=== PATIENT | male | born 2000 | race Caucasian/White ===

== ENCOUNTER 2023-06-22 14:40 | Emergency (ER) | payer OTHER ==
[2023-06-22] MEDS: Lidocaine 1% 5 ML VIAL INJECT ONE (15:15)
[2023-06-22] MEDS: Bacitracin/Neomycin/Polymyxin B Oint 0.9 GM U/D Packet TOP ONE (15:15)
== END 2023-06-22 16:00 | disposition home or self-care (01) ==
LOC: LL.ED 14:40
DX: S01.311A Laceration without foreign body of right ear, initial encounter (principal); S31.821A Laceration without foreign body of left buttock, initial encounter; S31.811A Laceration without foreign body of right buttock, initial encounter; W26.8XXA Contact with other sharp object(s), not elsewhere classified, initial encounter
CPT/HCPCS: 12001; 12011; 99282; 99283; J3490